=== PATIENT | male | born 1960 | race Caucasian/White ===

== ENCOUNTER 2021-03-18 13:36 | Outpatient (RCR) | payer OTHER, SELFPAY | END 2021-06-07 13:55 | disposition home or self-care (01) | LOC: ANHDMC 13:36 | PROVIDERS: Visit Provider Internal Medicine Endocrinology, Diabetes & Metabolism | DX: E11.9 Type 2 diabetes mellitus without complications (principal); Z71.89 Other specified counseling | CPT/HCPCS: G0108 ==